=== PATIENT | female | born 1970 | race Caucasian/White ===

== ENCOUNTER 2021-03-28 09:45 | Outpatient (CLI) | payer OTHER ==
[~2021-03-28 09:45] MED LIST: HYZAAR 50-12.1 UDTAB
== END 2021-03-28 09:55 | disposition home or self-care (01) ==
LOC: RAD 09:45
PROVIDERS: ATTEND Physical Medicine & Rehabilitation
DX: M17.0 Bilateral primary osteoarthritis of knee (principal)